=== PATIENT | male | born 1970 | race Caucasian/White ===

== ENCOUNTER → 2018-05-16 | Outpatient (CLI) | payer OTHER | END | disposition home or self-care (01) | LOC: RAD 10:26 | DX: M54.5 Low back pain (principal); M54.2 Cervicalgia; E78.5 Hyperlipidemia, unspecified; E66.9 Obesity, unspecified | CPT/HCPCS: 72040; 72100 ==

== ENCOUNTER → 2018-07-27 | Outpatient (CLI) | payer OTHER ==
[2015-09-24 15:31] VITALS: BP 128/71
[~2018-07-27] MED LIST: DULO60CA6 PO
--- NOTE | 2018-07-27 16:10 | RAD ---
EXAM: Left hip, 2 views HISTORY: Pain. COMPARISON: None. FINDINGS: Frontal and frog-leg views of the left hip are obtained. There is left hip joint space narrowing with subchondral sclerosis and marginal femoral head osteophytosis. There is no fracture, dislocation or subluxation. IMPRESSION: 1. Mild to moderate left hip osteoarthritis. 2. No acute osseous finding. Electronically signed by: Mercedez Medina MD (07/27/2018 4:06 PM) [facility]
== END | disposition home or self-care (01) ==
LOC: RAD 15:12
PROVIDERS: ATTEND Physical Medicine & Rehabilitation Pain Medicine
DX: M54.16 Radiculopathy, lumbar region (principal); M16.12 Unilateral primary osteoarthritis, left hip
CPT/HCPCS: 73502

== ENCOUNTER → 2020-01-07 | Outpatient (CLI) | payer OTHER ==
[2015-09-24 15:31] VITALS: BP 128/71
== END | disposition home or self-care (01) ==
LOC: LAB 14:26
PROVIDERS: ATTEND Internal Medicine Nephrology
DX: F10.20 Alcohol dependence, uncomplicated (principal); Y90.9 Presence of alcohol in blood, level not specified
CPT/HCPCS: 36415; G0480

== ENCOUNTER → 2020-08-05 | Outpatient (CLI) | payer OTHER ==
[2015-09-24 15:31] VITALS: BP 128/71
[~2020-08-05] MED LIST changes: +BUPIVACAINE MPF 0.5% 30 ML VIAL. INJ ONE; +CONTRAST GIVEN. MC PRN; +IOHEXOL 300 MG/ML 50 ML VIAL. IJ ONE; +methylPREDNISolone ACETATE 40 MG/ML VIAL. INJ ONE; +methylPREDNISolone ACETATE 80 MG/ML VIAL. INJ ONE; +methylPREDNISolone ACETATE 80 MG/ML VIAL. INT ART ONE
--- NOTE | 2020-08-05 15:18 | RAD ---
Examination: ARTHROCENT INT JT ASP/INJ RT, ARTHROCENT INT JT ASP/INJ LT History: Reason: OSTEOARTHRITIS / Spl. Instructions: 80mg DEPO-MEDROL; 4mL BUPIVACAINE, 5mL [id number] FT 1.6min / History: Comparison/Correlation: None Findings: Risks and benefits of bilateral hip joint injection were discussed with the patient and informed consent was obtained. Fluoroscopy was utilized for a total of 1.6 minutes. 2 images of the right hip and one image of the left hip were acquired. Betadine was utilized bilaterally overlying the hip joint degenerative changes. Sterile drape and lines. Site of needle placement. Subsequently, 5 cc 1 percent lidocaine was administered into the right hip. 20-gauge spinal needle was advanced into the right hip joint capsule removed under fluoroscopic guidance at the right femoral head-neck junction. 2 cc Omnipaque 300 was injected confirming needle placement. 80 mg Depo-Medrol and 4 cc of bupivacaine was injected into the joint capsule. No significant complication. 5 cc of 1 percent lidocaine and 4 cc 0.25 percent bupivacaine was administered for local anesthesia. 22-gauge spinal needle was 3 cc Omnipaque 300 was injected. Initially contrast is noted extracapsular in location. Since only a small amount of contrast within the left hip joint capsule was suspected on further fluoroscopic imaging and additional contrast administration. 80 mg Depo-Medrol and 4 cc was injected. Slightly greater than expected bleeding at the site of needle placement is noted at the conclusion as compared to what is typically seen. Impression: Bilateral hip joint Depo-Medrol and bupivacaine injection under fluoroscopic guidance. Electronically signed by: Javan Sanabria MD (08/05/2020 3:15 PM) [id number]
== END | disposition home or self-care (01) ==
LOC: RAD 12:41
PROVIDERS: ATTEND Orthopaedic Surgery Sports Medicine
DX: M16.0 Bilateral primary osteoarthritis of hip (principal); E78.5 Hyperlipidemia, unspecified; Z79.899 Other long term (current) drug therapy; Z82.49 Family history of ischemic heart disease and other diseases of the circulatory system; Z80.1 Family history of malignant neoplasm of trachea, bronchus and lung
CPT/HCPCS: 20610; 77002; J1040; J3490; Q9967; 20605

== ENCOUNTER → 2022-01-28 | Outpatient (CLI) | payer OTHER, BC ==
[2015-09-24 15:31] VITALS: BP 128/71
[~2022-01-28] MED LIST changes: -BUPIVACAINE MPF 0.5% 30 ML VIAL. INJ ONE; -CONTRAST GIVEN. MC PRN; -DULO60CA6 PO; +DULO60CA7 PO; -IOHEXOL 300 MG/ML 50 ML VIAL. IJ ONE; -methylPREDNISolone ACETATE 40 MG/ML VIAL. INJ ONE; -methylPREDNISolone ACETATE 80 MG/ML VIAL. INJ ONE; -methylPREDNISolone ACETATE 80 MG/ML VIAL. INT ART ONE
== END ==
LOC: LAB 14:24
PROVIDERS: ATTEND Orthopaedic Surgery
DX: Z96.643 Presence of artificial hip joint, bilateral (principal)
CPT/HCPCS: 36415; 85651; 86140

== ENCOUNTER → 2022-03-11 | Outpatient (CLI) | payer BC ==
[2015-09-24 15:31] VITALS: BP 128/71
[2022-03-11 14:53] LABS: BASO % 1 % (0-3); EOS # 0.1 x10^3/uL (0.0-0.7); EOS % 1 % (0-3); HEMATOCRIT 39.7 % (39.0-53.0); HEMOGLOBIN 13.3 g/dL (13.0-17.5); LYMPH # 1.4 x10^3/uL (1.0-4.8); LYMPH % 24 % (24-48); MEAN CORPUSCULAR HEMOGLOBIN 27 pg (25-35); MEAN CORPUSCULAR HGB CONC 34 g/dL (31-37); MEAN CORPUSCULAR VOLUME 79 fL (79-100); MONO # 0.6 x10^3/uL (0.0-1.1); MONO % 10 % (0-9); NEUT # 3.8 x10^3/uL (1.8-7.7); NEUT % 64 % (31-73); PLATELET COUNT 257 x10^3/uL (140-400); RED BLOOD COUNT 5.03 x10^6/uL (4.30-5.70); WHITE BLOOD COUNT 5.9 x10^3/uL (4.0-11.0)
== END ==
LOC: LAB 14:19
PROVIDERS: ATTEND Internal Medicine Infectious Disease
DX: T84.52XA Infection and inflammatory reaction due to internal left hip prosthesis, initial encounter (principal)
CPT/HCPCS: 36415; 85025; 85651; 86140